=== PATIENT | female | born 1980 | race Caucasian/White ===

== ENCOUNTER 2021-01-04 21:48 | Emergency (ER) | payer MEDICAID ==
[~2021-01-04] VITALS: Ht 162.6 cm; Wt 65.2 kg
[~2021-01-04 21:48] MED LIST: ONDA4TAB59 PO
--- NOTE | 2021-01-04 23:02 | NUR ---
pt states she can't void at this time. She was given 1L of water and told to drink as much as she can and that I would be back in 10 mins and she needs to try and provide a urine sample.
--- NOTE | 2021-01-04 23:20 | NUR ---
PT SITTING IN ROOM TEXTING ON PHONE. SHE STATES SHE STILL CAN'T VOID. I TOLD HER SHE NEEDS TO AT LEAST MAKE AN ATTEMPT AND SENT HER TO THE [facility]. SHE HAS ONLY DRANK A FEW SIPS OF THE WATER WE GAVE HER.
[2021-01-04 23:40] LABS: URINE HCG NEGATIVE (NEG)
[2021-01-04] MEDS ORDERED: PENICILLIN G BENZATHINE 2,400,000 UNIT/4 ML SYRINGE IM STA (23:53)
[2021-01-04] MEDS ORDERED: valacyclovir 500mg tablet PO STA (23:53)
[2021-01-04] MEDS ORDERED: CefTRIAXone 1000mg IM Kit (w/lidocaine diluent) IM STA (23:53)
[2021-01-04] MEDS ORDERED: azithromycin 250mg tablet PO ONE (23:55)
[2021-01-05] MEDS ORDERED: ketorolac trometh. 30mg/ml inj. IM ONE
[2021-01-05] MEDS ORDERED: HYDR-3972 PO (00:03)
[2021-01-05] MEDS ORDERED: VALA100031 PO (00:03)
[2021-01-05 00:07] LABS: GLUCOSE, URINE NEGATIVE (Neg); KETONES,URINE NEGATIVE (Neg); LEUKOCYTE ESTERASE ,URINE MODERATE (Neg); NITRITES, URINE POSITIVE (Neg); OCCULT BLOOD,URINE NEGATIVE (Neg); PROTEIN,URINE 30 mg/dl (Neg); UROBILINOGEN,URINE 0.2 E.U/dL (0.2-1.0)
[2021-01-05 00:10] LABS: COLOR,URINE DARK YELLOW (Yellow); UA COLLECTION TYPE CLN CATCH MIDSTREAM
[2021-01-05 00:11] LABS: CLARITY,URINE CLOUDY (Clear)
[2021-01-05 00:16] LABS: BACTERIA,URINE 3+ /HPF (Neg); MUCUS STRANDS MANY /LPF (Neg); RBC,URINE 0-2 /HPF (0-2); SQUAMOUS EPITHELIAL CELL,UR MANY /LPF (FEW); YEAST MODERATE /HPF (NEGATIVE)
--- NOTE | 2021-01-05 00:17 | NUR ---
URINE REJECTED FOR CULTURE
[2021-01-05 00:45] VITALS: BP 115/66
== END 2021-01-05 00:45 | disposition home or self-care (01) ==
LOC: ER 21:48
DX: A60.00 Herpesviral infection of urogenital system, unspecified (principal); A64 Unspecified sexually transmitted disease; R30.0 Dysuria; R10.2 Pelvic and perineal pain; Z79.2 Long term (current) use of antibiotics; Z79.899 Other long term (current) drug therapy
CPT/HCPCS: 36415; 81001; 81025; 86592; 87491; 87591; 96372; 99284; J0561; J0696; J1885; 81003

== ENCOUNTER 2021-01-13 15:34 | Emergency (ER) | payer MEDICAID ==
[~2021-01-13] VITALS: Ht 162.6 cm; Wt 65.9 kg
[~2021-01-13 15:34] MED LIST changes: +HYDR-3972 PO; +VALA100031 PO
[2021-01-13 17:55] VITALS: BP 121/66
== END 2021-01-13 17:57 | disposition home or self-care (01) ==
LOC: ER 15:35
DX: L03.115 Cellulitis of right lower limb (principal); Z79.899 Other long term (current) drug therapy
CPT/HCPCS: 99282

== ENCOUNTER 2021-05-19 14:19 | Emergency (ER) | payer MEDICAID ==
[~2021-05-19 14:19] MED LIST changes: -HYDR-3972 PO
== END 2021-05-19 14:34 | disposition left against medical advice (07) ==
LOC: ER 14:20
DX: H92.09 Otalgia, unspecified ear (principal); Z53.21 Procedure and treatment not carried out due to patient leaving prior to being seen by health care provider